=== PATIENT | female | born 1980 | race Hispanic/Latino ===

== ENCOUNTER 2025-01-01 22:50 | Inpatient (IN) | payer BC, OTHER ==
[~2025-01-01] VITALS: Ht 160 cm; Wt 81.2 kg
[~2025-01-01 22:50] MED LIST: GLIPIZIDE5 MG PO; METFORMIN HCL500 MG PO; [UNRECOGNIZED DRUG - CODE] PO
[2025-01-01 23:02] VITALS: TEMP 98.4
[2025-01-01 23:30] LABS: BASOPHILS % 0.3 % (0.0-1.0); EOSINOPHILS # (AUTO) 0.3 (0.0-0.4); EOSINOPHILS % 2.7 % (0.0-6.0); HEMATOCRIT 32.7 % (34.2-44.1); HEMOGLOBIN 11.2 g/dL (12.0-16.0); LYMPHOCYTES # (AUTO) 1.2 (1.0-3.2); MEAN CORPUSCULAR HEMOGLOBIN 28.2 pg (28-32); MEAN CORPUSCULAR HGB CONC 34.3 g/dL (31-35); MEAN CORPUSCULAR VOLUME 82.4 fL (81-99); MONOCYTES # (AUTO) 0.7 (0.2-0.8); MONOCYTES % 7.6 % (4.4-11.3); NEUTROPHILS # (AUTO) 7.1 (2.1-6.9); PLATELET COUNT 290 x10e3/uL (140-360); RED BLOOD COUNT 3.97 x10e6/uL (3.6-5.1); RED CELL DISTRIBUTION WIDTH 13.2 % (11.7-14.4); WHITE BLOOD COUNT 9.35 x10e3/uL (4.8-10.8)
[2025-01-01] MEDS: ONDANSETRON HCL INJ 2MG/ML 2ML 2 MG/ML VIAL IV STA (23:33)
[2025-01-01] MEDS: SODIUM CHLORIDE 0.9% 1000ML 2,000 ML IV STA (23:34)
[2025-01-02] VITALS (12 sets, daily range): BP systolic 116–176; BP diastolic 69–93; PULSE 93–108; RESP 17–20; TEMP 97.7–98.7; O2SAT 99–100
[2025-01-02 00:02] LABS: ALBUMIN 3.3 g/dL (3.5-5.0); ALBUMIN/GLOBULIN RATIO 0.9 (0.8-2.0); ANION GAP 17.6 mmol/L (8-16); BILIRUBIN,TOTAL 0.5 mg/dL (0.2-1.2); CALCIUM 8.7 mg/dL (8.4-10.2); CREATININE, SERUM 2.31 mg/dL (0.57-1.11); POTASSIUM 3.6 mmol/L (3.5-5.1)
[2025-01-02] MEDS ORDERED: SODIUM CHLORIDE 0.9% 1000ML 1,000 ML ONE (02:20)
[2025-01-02 02:36] LABS: BILIRUBIN,URINE SMALL (NEGATIVE); CLARITY,URINE HAZY (CLEAR); COLOR,URINE YELLOW (YELLOW); GLUCOSE, URINE 1+ (NEGATIVE); KETONES,URINE NEGATIVE (NEGATIVE); LEUKOCYTE ESTERASE ,URINE NEGATIVE (NEGATIVE); NITRITE,URINE NEGATIVE (NEGATIVE); PH,URINE 5 (5 - 7); PROTEIN,URINE DIPSTICK >=300 (NEGATIVE); URINE UROBILINOGEN 0.2 mg/dL (0.2 - 1)
[2025-01-02 02:38] LABS: AMORPHOUS SEDIMENT,URINE MODERATE; BACTERIA,URINE MODERATE /HPF; EPITHELIAL CELLS,URINE MODERATE /LPF; RBC,URINE 0-5 /HPF (0-5); WBC,URINE (MAN) 0-5 /HPF (0-5)
[2025-01-02] MEDS: SODIUM CHLORIDE 0.9% 1000ML 1,000 ML IV SCH (02:42)
[2025-01-02 02:47] LABS: PREGNANCY TEST, URINE NEGATIVE (NEGATIVE)
[2025-01-02] MEDS ORDERED: TRAZODONE HCL50 MG PO (03:42)
[2025-01-02] MEDS ORDERED: MOUNJARO2.5 MG/0.5 SQ (03:42)
[2025-01-02] MEDS ORDERED: CLARITIN10 MG PO (03:42)
[2025-01-02] MEDS ORDERED: SERTRALINE HCL100 MG PO (03:42)
[2025-01-02] MEDS ORDERED: IOPAMIDOL 370 MG/ML 100 ML INFUS..BTL INJ ONE (05:50)
[2025-01-02] MEDS: ONDANSETRON HCL INJ 2MG/ML 2ML 2 MG/ML VIAL IV PRN ×2 (09:59→21:47)
[2025-01-02] MEDS ORDERED: SODIUM BICARBONATE 8.4% SYRING 150 ML in STERILE WATER IV SOLN 1,000 ML IV SCH (10:45)
[2025-01-02] MEDS ORDERED: SODIUM BICARBONATE 8.4% VIAL 150 ML in DEXTROSE 5% 1,000 ML IV SCH (11:00)
[2025-01-02 11:08] LABS: ALBUMIN 2.7 g/dL (3.5-5.0); ALBUMIN/GLOBULIN RATIO 0.8 (0.8-2.0); ANION GAP 13.1 mmol/L (8-16); BILIRUBIN,TOTAL 0.4 mg/dL (0.2-1.2); CALCIUM 7.8 mg/dL (8.4-10.2); CREATININE, SERUM 1.77 mg/dL (0.57-1.11); POTASSIUM 4.1 mmol/L (3.5-5.1); TOTAL PROTEIN 6.1 g/dL (6.5-8.1)
[2025-01-02] MEDS: SODIUM CHLORIDE 0.9% 1000ML 1,000 ML IV STA (11:20)
[2025-01-02] MEDS: SODIUM BICARBONATE 8.4% VIAL 150 ML in STERILE WATER IV SOLN 1,000 ML IV SCH (11:20)
[2025-01-02 12:24] LABS: CREATININE,URINE RANDOM 81.78 mg/dL (47-110)
[2025-01-02 12:26] LABS: TOTAL PROTEIN, URINE 217.6 mg/dL (1-14)
[2025-01-02] MEDS ORDERED: ACETAMINOPHEN 325 MG TAB PO PRN (14:15)
[2025-01-02] MEDS: PANTOPRAZOLE SOD 40 MG TABEC PO ONE (15:21)
[2025-01-03] VITALS (8 sets, daily range): BP systolic 118–155; BP diastolic 76–83; PULSE 76–96; RESP 16–20; TEMP 97.9–98.6; O2SAT 97–100
[2025-01-03] MEDS: DICYCLOMINE HCL 20 MG TAB PO STA (00:07)
[2025-01-03] MEDS: METOCLOPRAMIDE HCL 10 MG/2ML VIAL IV ONE (00:08)
[2025-01-03] MEDS: SERTRALINE HCL 100 MG TAB PO SCH (00:42)
[2025-01-03 05:53] LABS: ALBUMIN 2.4 g/dL (3.5-5.0); ALBUMIN/GLOBULIN RATIO 0.8 (0.8-2.0); ANION GAP 12.3 mmol/L (8-16); BILIRUBIN,TOTAL 0.4 mg/dL (0.2-1.2); CALCIUM 7.7 mg/dL (8.4-10.2); CREATININE, SERUM 1.43 mg/dL (0.57-1.11); POTASSIUM 3.3 mmol/L (3.5-5.1); TOTAL PROTEIN 5.5 g/dL (6.5-8.1)
[2025-01-03] MEDS ORDERED: METOCLOPRAMIDE HCL 10 MG/2ML VIAL IV SCH (06:00)
[2025-01-03] MEDS: DICYCLOMINE HCL 20 MG TAB PO SCH (06:01)
[2025-01-03 06:13] LABS: % IRON SATURATION 13 % (15-50); IRON 28 ug/dL (50-170); TOTAL IRON BINDING CAPACITY 217 ug/dL (261-478); TRANSFERRIN 155 mg/dL (180-382)
[2025-01-03 06:23] LABS: PHOSPHORUS 2.6 MG/DL (2.3-4.7)
[2025-01-03 06:26] LABS: MAGNESIUM 1.1 MG/DL (1.3-2.1)
[2025-01-03 06:34] LABS: THYROID STIMULATING HORMONE 3.441 uIU/mL (0.350-4.940)
[2025-01-03] MEDS: LORATADINE 10 MG TAB PO SCH (08:36)
[2025-01-03 08:43] LABS: BASOPHILS % 0.5 % (0.0-1.0); EOSINOPHILS # (AUTO) 0.3 (0.0-0.4); EOSINOPHILS % 3.3 % (0.0-6.0); HEMATOCRIT 25.1 % (34.2-44.1); LYMPHOCYTES # (AUTO) 2.6 (1.0-3.2); LYMPHOCYTES % 30.4 % (18.0-39.1); MEAN CORPUSCULAR HEMOGLOBIN 28.3 pg (28-32); MEAN CORPUSCULAR HGB CONC 34.3 g/dL (31-35); MEAN CORPUSCULAR VOLUME 82.6 fL (81-99); MONOCYTES # (AUTO) 0.6 (0.2-0.8); MONOCYTES % 6.4 % (4.4-11.3); NEUTROPHILS % 58.7 % (38.7-80.0); PLATELET COUNT 234 x10e3/uL (140-360); RED BLOOD COUNT 3.04 x10e6/uL (3.6-5.1); RED CELL DISTRIBUTION WIDTH 13.3 % (11.7-14.4); WHITE BLOOD COUNT 8.58 x10e3/uL (4.8-10.8)
[2025-01-03 08:44] LABS: HEMOGLOBIN 8.6 g/dL (12.0-16.0)
[2025-01-03] MEDS ORDERED: SERTRALINE HCL 100 MG TAB PO SCH (09:00)
[2025-01-03] MEDS: IRON SUCROSE 100 MG in SODIUM CHLORIDE 0.9% 100 ML IV SCH (09:49)
[2025-01-03 10:10] LABS: EOSINOPHILS % (MANUAL) 1 % (0-7); LYMPHOCYTES % (MANUAL) 33 % (19-48); MONOCYTES % (MANUAL) 9 % (3.4-9.0); NEUTROPHILS % (MANUAL) 54 % (40-74); PLATELET ESTIMATE ADEQUATE; REACTIVE LYMPHOCYTES 3
[2025-01-03 10:11] LABS: PLATELET MORPHOLOGY COMMENT NORMAL
[2025-01-03] MEDS: METOCLOPRAMIDE HCL 10 MG/2ML VIAL IV SCH (11:43)
[2025-01-03] MEDS: MAGNESIUM SULFATE 2GM/50ML 50 ML IV ONE (11:43)
[2025-01-03] MEDS: POTASSIUM CHLORIDE 20MEQ/100ML 100 ML IV SCH (11:43)
[2025-01-03] MEDS: CYANOCOBALAMIN INJ 1,000 MCG/ML VIAL IM ONE (23:21)
[2025-01-04] VITALS (7 sets, daily range): BP systolic 153–170; BP diastolic 91–98; PULSE 77–85; RESP 18; TEMP 97.7–98.5; O2SAT 94–100
[2025-01-04 05:16] LABS: BASOPHILS % 0.5 % (0.0-1.0); EOSINOPHILS # (AUTO) 0.2 (0.0-0.4); EOSINOPHILS % 2.5 % (0.0-6.0); HEMATOCRIT 24.1 % (34.2-44.1); HEMOGLOBIN 8.3 g/dL (12.0-16.0); LYMPHOCYTES # (AUTO) 3.4 (1.0-3.2); MEAN CORPUSCULAR HEMOGLOBIN 28.3 pg (28-32); MEAN CORPUSCULAR HGB CONC 34.4 g/dL (31-35); MEAN CORPUSCULAR VOLUME 82.3 fL (81-99); MONOCYTES # (AUTO) 0.6 (0.2-0.8); NEUTROPHILS # (AUTO) 3.8 (2.1-6.9); PLATELET COUNT 262 x10e3/uL (140-360); RED BLOOD COUNT 2.93 x10e6/uL (3.6-5.1); WHITE BLOOD COUNT 8.16 x10e3/uL (4.8-10.8)
[2025-01-04 05:51] LABS: ALBUMIN 2.6 g/dL (3.5-5.0); ALBUMIN/GLOBULIN RATIO 0.9 (0.8-2.0); ANION GAP 12.5 mmol/L (8-16); BILIRUBIN,TOTAL 0.4 mg/dL (0.2-1.2); CREATININE, SERUM 1.13 mg/dL (0.57-1.11); POTASSIUM 3.5 mmol/L (3.5-5.1); TOTAL PROTEIN 5.4 g/dL (6.5-8.1)
[2025-01-04] MEDS: CYANOCOBALAMIN INJ 1,000 MCG/ML VIAL IM SCH (08:20)
[2025-01-04] MEDS: LABETALOL HCL 5 MG/ML 20ML VIAL IV PRN (08:21)
[2025-01-04] MEDS: IRON SUCROSE 100 MG in SODIUM CHLORIDE 0.9% 100 ML IV SCH (09:00)
[2025-01-04 09:38] LABS: EOSINOPHILS % (MANUAL) 1 % (0-7); LYMPHOCYTES % (MANUAL) 30 % (19-48); MONOCYTES % (MANUAL) 5 % (3.4-9.0); NEUTROPHILS % (MANUAL) 64 % (40-74); PLATELET ESTIMATE ADEQUATE; PLATELET MORPHOLOGY COMMENT NORMAL; RBC MORPHOLOGY COMMENT NORMAL
[2025-01-04] MEDS: POTASSIUM CHLORIDE 20 MEQ TAB CR PO ONE (11:57)
== END 2025-01-04 13:39 | disposition home or self-care (01) | DRG 392 ==
LOC: ER 22:54 → ERHOLD 01-02 02:17 → MED/SURG 01-02 02:59
PROVIDERS: ADMIT Internal Medicine; ATTEND Internal Medicine
DX: A08.4 Viral intestinal infection, unspecified (principal); N17.9 Acute kidney failure, unspecified; E87.20 Acidosis, unspecified; K50.90 Crohn's disease, unspecified, without complications; E11.65 Type 2 diabetes mellitus with hyperglycemia; D50.9 Iron deficiency anemia, unspecified; I10 Essential (primary) hypertension; E86.0 Dehydration; E87.6 Hypokalemia; E83.42 Hypomagnesemia; R00.0 Tachycardia, unspecified; R11.2 Nausea with vomiting, unspecified; F41.9 Anxiety disorder, unspecified; F32.A Depression, unspecified; Z79.84 Long term (current) use of oral hypoglycemic drugs; Z91.040 Latex allergy status; Z88.2 Allergy status to sulfonamides; Z88.1 Allergy status to other antibiotic agents; Z88.5 Allergy status to narcotic agent; Z82.49 Family history of ischemic heart disease and other diseases of the circulatory system; Z87.891 Personal history of nicotine dependence
CPT/HCPCS: 36415; 74177; 76770; 80053; 80061; 81001; 81025; 82570; 82607; 82746; 82948; 83036; 83540; 83690; 83735; 84100; 84156; 84439; 84443; 84466; 84550; 85025; 85045; 86140; 93005; 94799; 99284; J1756; J2405; J2470; J2765; J3420; J3475; J3480; J7030; J7050; J7070; Q9967